=== PATIENT | female | born 1950 | race Caucasian/White ===

== ENCOUNTER → 2016-10-28 | Outpatient (CLI) | payer OTHER | LOC: MAMMO 11:29 | PROVIDERS: ATTEND General Practice | DX: Z12.31 Encounter for screening mammogram for malignant neoplasm of breast (principal) ==

== ENCOUNTER → 2019-04-26 | Outpatient (CLI) | payer MEDICARE ==
--- NOTE | 2019-04-27 17:28 | CT ---
Procedure: CT LUNG SCREENING Exam Date: 04/26/2019. Ordering Provider: Antonietta Mclaughlin Clinical Indication: nicotine dependence . Current cigarette smoker. 75+ pack years. This patient meets eligibility criteria for low-dose CT lung cancer screening. Comparison: None. Technique: Using a multislice scanner, sequential helical axial imaging was obtained in the thorax, 2.5 mm thickness, 2.5 mm separation, from the level of the thoracic inlet through the lung bases without IV contrast. A low dose protocol was utilized for BMI more than 30: BMI: 46.1. CTDI: 2.92 mGy. 120. kVp. 45 mA. DLP 101.64 mGy-cm. 2D sagittal and coronal reconstructed images, 6.0 mm thickness, were obtained. This exam was performed according to our departmental dose optimization program which includes use of automated exposure control, adjustment of the mA and/or kV according to patient size and/or use of iterative reconstruction technique. Nodule measurements under 10 mm are given as mean value of 3 axes diameters. FINDINGS: Lungs and large airways: Bibasilar pleural-parenchymal scarring. Bilateral perihilar peribronchial wall cuffing. Upper lobe more than lower lobe parenchymal blebs and occasional bulla abutting the lateral or medial pleura. 7.8 millimeter groundglass nodule posterior left apex on axial image 2/29 pleural parenchymal scars in the inferior lingula and inferior right middle lobe. 2.5 mm groundglass nodule subpleural lateral right upper lobe on axial image 2/49 3 mm partially solid nodule in the subpleural lateral aspect superior segment right lower lobe on axial image 2/72 with a smaller nodule 1 cm medial on image 2/73. Focal pleural thickening versus 3.5 mm subpleural nodule posterior medial right upper lobe on image 2/32. 2 mm solid subpleural nodule posterior right lower lobe on image 2/87. Pleura and space: Bilateral focal pleural thickening sporadic, mostly upper lobes with no effusion or pneumothorax. Mediastinum and julia: evaluation limited by low dose technique and lack of IV contrast. No enlarged lymph nodes or dominant soft tissue masses. Heart and great vessels: A stent/graft from the aorta to the right innominate artery. Atherosclerotic calcifications in the aorta. Chest wall, lower neck, axillae: Evaluation also limited by same factors as described above. Bilateral axillary lymph nodes are unremarkable. Large patient body habitus. Small thyroid gland. Upper abdomen: Evaluation limited by low-dose technique. No free fluid or free air. Small splenule. Included organ images show no abnormalities. Osseous structures: Evaluation limited by low dose MIP technique. Spondylosis at multiple levels. No lytic or blastic lesions. IMPRESSION: Emphysematous changes more prevalent in the upper lobes. Multiple nodules but no abnormal diameters. No mass. No acute infiltrate. [facility] Best Practice Recommendations: please see below for Lung RADS category and FOLLOW-UP.* *Lung RADS category CATEGORY 2- Nodules with a very low likelihood (less than 1%) of becoming a clinically active cancer due to size or lack of growth. Nodules: Perifissural nodule(s) < 10 mm. (526mm3). Solid or part solid nodule(s) less than 6mm (113.1 mm3), new solid nodule less than 4mm (33.5 mm3). Ground glass nodule(s) less than 30mm (77196.2 mm3) or unchanged or slow growing ground glass nodule 30mm or greater. Cat 3 or 4 nodule unchanged for 3 or more months. FOLLOW-UP: Continue annual screening with a Low Dose Chest CT in 12 months for re-evaluation. 2. Stent-graft aorta to right innominate artery. 3. Imaging record shows last mammographic screening at this facility in October 2016. Consider renewing yearly routine bilateral screening digital breast tomosynthesis at this facility if patient has not undergone breast screening in the past 12 months elsewhere. Electronically signed by: Edgar Gonzalez MD 04/27/2019 5:26 PM ACCOUNTING PROFESSOR
== END ==
LOC: CT 14:00
PROVIDERS: ATTEND Nurse Practitioner Family
DX: Z87.891 Personal history of nicotine dependence (principal); J43.9 Emphysema, unspecified; R91.8 Other nonspecific abnormal finding of lung field

== ENCOUNTER → 2019-09-11 | Outpatient (CLI) | payer MEDICARE ==
--- NOTE | 2019-09-12 16:20 | MAM ---
EXAM DESCRIPTION: 3D Screening BILATERAL : Digital Mammography. CLINICAL HISTORY: 69 years Female SCREENING . No complaints or personal history of breast cancer. Remote family history of breast cancer. Menarche age 12. Childbirth age 17. Postmenopause age 21. HRT 5 or more years ago. Lifetime risk of developing breast cancer (Tyrer-Cuzick model)(%): 4.4. COMPARISON: 2-D digital screening bilateral mammography. October 2016. TECHNIQUE: Bilateral CC and MLO projection full-field images digital tomosynthesis mammographic technique. Bilateral digital 2-D full-field MLO images. CAD available for 2-D images. FINDINGS: The breast parenchymal density pattern is: Scattered areas of fibroglandular density. No skin thickening or nipple retraction. Solitary microcalcifications. Left axillary lymph node. No new focal, stellate mass or density, focal asymmetry , and no suspicious microcalcifications bilaterally. Stable mammograms compared to prior study. Taking into account, differences in mammographic technique. IMPRESSION: Benign exam. BIRAD CATEGORY: 2 BENIGN FINDINGS. RECOMMENDATIONS: FOLLOW UP: Routine digital bilateral mammographic screening, one year interval from August 2019. Written communication explaining the IMPRESSION and follow-up, will be mailed to the patient and referring health care provider. According to the [employer], yearly mammograms are recommended starting at age 40 and continuing as long as a woman is in good health. Any breast change noted on a breast self-exam should be reported promptly to the patient's healthcare provider. Breast MRI is recommended for women with an approximately 20-25% or greater lifetime risk of breast cancer, including women with a strong family history of breast or ovarian cancer and women who have been treated for Hodgkin's disease. A negative mammographic report should not delay tissue diagnosis in patients with significant clinical history or physical findings. Extremely dense breast tissue limits the sensitivity of digital mammography. Electronically signed by: Edgar Gonzalez MD 09/12/2019 4:19 PM CDT
== END ==
LOC: MAMMO 10:00
PROVIDERS: ATTEND General Practice
DX: Z12.31 Encounter for screening mammogram for malignant neoplasm of breast (principal)

== ENCOUNTER → 2020-01-23 | Outpatient (CLI) | payer MEDICAID, MEDICARE ==
--- NOTE | 2020-01-24 09:07 | CT ---
EXAM DESCRIPTION: Pelvis CLINICAL HISTORY: 70 years Female, SACROCOCCYGEAL DISORDERS NOT ELSEWHERE CLASSIFIED TECHNIQUE: This exam was performed according to our departmental dose-optimization program, which includes automated exposure control, adjustment of the mA and/or kV according to patient size and/or use of iterative reconstruction technique. COMPARISON: None at time of initial interpretation. FINDINGS: Periumbilical hernia containing nonobstructed bowel. The visualized bowel is normal in caliber without evidence of obstruction or focal inflammatory change. Presumed hysterectomy. No suspicious adnexal lesion. The bladder is unremarkable. Scattered atherosclerotic disease. No suspicious mass or adenopathy. Multilevel lumbar spondylosis. Please see concurrent MRI. No acute fracture or dislocation. No focal soft tissue swelling. Mild bilateral hip osteoarthritis. Right greater than left hamstring tendinopathy. IMPRESSION: No evidence of acute process in the pelvis. Electronically signed by: Ayaz Andrews MD 01/24/2020 9:05 AM CDT
--- NOTE | 2020-01-24 15:45 | MRI ---
EXAM DESCRIPTION: Lumbar Spine w/o Contrast : Magnetic Resonance Imaging. CLINICAL HISTORY: OTHER INTERVERTEBRAL DISC DEGENERATION LUMBAR REGION COMPARISON: Sacroiliac radiograph July 31. TECHNIQUE: Multiplanar, multiple standard sequences, non contrast MRI, lumbar spine. FINDINGS: L5-S1: The disc is well visualized on axial T2 series 501, image 3. Moderate disc space loss with desiccation and endplate changes more severe on the left. Disc spur complex encroaching on the foramen and abutting the exiting right left L5 nerve. Disc bulge into the right foramen impinging right L5 nerve. Hypertrophic changes in the facet joints and posterior flavum ligaments (canal elements. AP canal diameter 11 mm. Bilateral narrowing subarticular recesses. L4-L5: Disc desiccation with posterior disc space loss, anterior bulging. 2 mm retrolisthesis and posterior disc osteophyte bulge. Hypertrophic changes in the canal elements. AP canal diameter 9 mm. Endplate reactive changes right of midline with disc osteophyte complex encroaching on the right L4 nerve and right foraminal stenosis. Near stenosis of the left foramen. L3-L4: Disc desiccation and minimal disc space loss. Anterior disc bulge and ridging. Posterior disc osteophyte bulge into the canal. 1 mm grade 1 anterolisthesis. Hypertrophic changes in the canal elements more on the left. AP canal diameter 6 mm. Severe foraminal narrowing on the left and borderline right foraminal stenosis. L2-L3: Disc desiccation with minimal anterior bulging and endplate ridging. Hypertrophic changes in the canal elements, more on the left. AP canal diameter 10 mm. Severe bilateral foraminal narrowing. L1-L2: Advanced endplate reactive changes to the left of midline with disc spur complex encroaching on the right foramen and the exiting right L1 nerve. Anterior and posterior midline disc bulging and Schmorl's nodes. Hypertrophic changes in the canal elements with AP canal diameter 7 mm. Disc osteophyte complex effacing the subarticular recess and possible compromise descending left L2 nerve. Minimal narrowing of the right disc space with right foramen patent. T12-L1: Disc space preserved with disc desiccation. Large Schmorl's nodule versus old compression injury superior L1 endplate. No posterior bulging. Mild hypertrophic changes in the canal elements. Trace anterolisthesis. AP canal diameter 11 mm. Mild narrowing of the bilateral foramina. Conus terminates just below the disc space. T12-L2 dextroscoliosis. L2-S1 levoscoliosis. Paravertebral soft tissues muscle atrophy.. Distal cord normal signal and caliber. Otherwise normal marrow signal in the remaining vertebral bodies and the posterior elements. Vertebral bodies are not compressed at any level. IMPRESSION: 1. Multilevel disc desiccation, disc space loss, spondylosis, hypertrophic facet ligaments and facet joint arthrosis. 2. L5-S1 disc bulge into the right foramen impinging the right L5 nerve. L5-S1 spondylosis on the left with disc spur complex encroaching on the left L5 nerve. 3. Advanced spondylosis left of midline at L1-L2 with canal narrowing left foraminal stenosis, impingement left L1 nerve. The subarticular recess stenosis with possible impingement of the left L2 nerve. Moderate to severe left paracentral canal stenosis. 4. Posterior L3-L4 disc osteophyte bulge into the canal with severe canal stenosis and borderline right foraminal stenosis. Electronically signed by: Edgar Gonzalez MD 01/24/2020 3:43 PM CDT
== END ==
LOC: MRI 11:19
PROVIDERS: ATTEND General Practice
DX: M51.36 Other intervertebral disc degeneration, lumbar region (principal); M47.896 Other spondylosis, lumbar region; M48.062 Spinal stenosis, lumbar region with neurogenic claudication; M51.87 Other intervertebral disc disorders, lumbosacral region; M51.37 Other intervertebral disc degeneration, lumbosacral region; M25.78 Osteophyte, vertebrae; M24.28 Disorder of ligament, vertebrae; M53.3 Sacrococcygeal disorders, not elsewhere classified

== ENCOUNTER → 2020-01-28 | Outpatient (CLI) | payer MEDICARE, MEDICAID ==
--- NOTE | 2020-01-29 11:35 | US ---
EXAM DESCRIPTION: 3D Diagnostic, Bilateral (accession [id number]), Breast,Left (accession [id number]): Ultrasound CLINICAL HISTORY: 70 yearsFemaleABNORMAL MAMMOGRAM pain in the upper left breast. Intermittent. Remote family history of breast cancer. Menarche age 12. Childbirth age 16. Menopause age 23. HRT 5 or more years ago. Benign cyst aspiration Lifetime risk of developing breast cancer (Tyrer-Cuzick model)(%): 5.3. COMPARISON: Bilateral screening digital breast tomosynthesis August 2019 and October 2016, 2-D bilateral screening mammogram. TECHNIQUE: Bilateral LM and CC projection full-field images, digital tomosynthesis technique. Bilateral 2-D digital full-field images: LM and CC projections. CAD available for 2-D images.. Transcutaneous scanning of the left breast utilizing hanson-scale and Doppler modes. Scanning performed by the surgical services assistant and observation by Dr. Gonzalez. FINDINGS: The breast parenchymal density pattern is: Scattered areas of fibroglandular density. No skin thickening or nipple retraction bilateral solitary microcalcifications. No new focal, stellate mass or density, focal asymmetry , and no suspicious microcalcifications bilaterally. Ultrasound: At the region of interest 4 cm from the left nipple at 12:00. No dominant solid mass or distinct cyst. No large calcifications or fluid collection. The overlying skin is unremarkable. IMPRESSION: Benign exam. BIRAD CATEGORY: 2 BENIGN FINDINGS. RECOMMENDATIONS: FOLLOW UP: Return to routine digital bilateral mammographic screening, one year interval from January 2020. Written communication explaining the IMPRESSION and follow-up, will be mailed to the patient and referring health care provider. The FINDINGS and the FOLLOW-UP plan were reviewed in person with the patient after the examination. According to the [employer], yearly mammograms are recommended starting at age 40 and continuing as long as a woman is in good health. Any breast change noted on a breast self-exam should be reported promptly to the patient's healthcare provider. Breast MRI is recommended for women with an approximately 20-25% or greater lifetime risk of breast cancer, including women with a strong family history of breast or ovarian cancer and women who have been treated for Hodgkin's disease. A negative mammographic report should not delay tissue diagnosis in patients with significant clinical history or physical findings. Extremely dense breast tissue limits the sensitivity of digital mammography. Electronically signed by: Edgar Gonzalez MD 01/29/2020 11:33 AM CDT
== END ==
LOC: MAMMO 11:00
PROVIDERS: ATTEND General Practice
DX: R92.8 Other abnormal and inconclusive findings on diagnostic imaging of breast (principal)
CPT/HCPCS: 76641; 77066; G0279